=== PATIENT | male | born 1970 | race Hispanic/Latino ===

== ENCOUNTER 2019-12-05 18:35 | Emergency (ER) | payer OTHER ==
[~2019-12-05] VITALS: Ht 162.6 cm; Wt 64.0 kg
[2019-12-05] MEDS ORDERED: SODIUM CHLORIDE 0.9% 1000ML 1,000 ML IV ONE ×2 (19:00→19:45)
[2019-12-05] MEDS ORDERED: INSULIN REGULAR, HUMAN 100 UNIT/1 ML 3ML VIAL SQ ONE ×2 (19:00→21:30)
[2019-12-05 19:16] LABS: BASOPHILS # (AUTO) 0.1 (0.0-0.1); BASOPHILS % 0.3 % (0.0-1.0); EOSINOPHILS % 0.2 % (0.0-6.0); HEMATOCRIT 43.4 % (38.2-49.6); HEMOGLOBIN 14.5 g/dL (14.0-18.0); LYMPHOCYTES # (AUTO) 0.9 (1.0-3.2); LYMPHOCYTES % 6.1 % (18.0-39.1); MEAN CORPUSCULAR HEMOGLOBIN 27.9 pg (28-32); MEAN CORPUSCULAR HGB CONC 33.4 g/dL (31-35); MEAN CORPUSCULAR VOLUME 83.5 fL (81-99); MONOCYTES # (AUTO) 0.7 (0.2-0.8); NEUTROPHILS # (AUTO) 12.6 (2.1-6.9); NEUTROPHILS % 87.8 % (38.7-80.0); PLATELET COUNT 289 x10e3/uL (140-360); RED CELL DISTRIBUTION WIDTH 12.7 % (11.7-14.4)
--- NOTE | 2019-12-05 19:20 | Emergency Department Note ---
History of Present Illnes History of Present Illness Chief Complaint: Diabetic Crisis History of Present Illness This is a 49 year old male tates bs at home 600 c/o peeing more and being thirstier than usual takes glipezide er and metformin er at home. Does report he did not take his diabetes medication today. Historian: Patient Arrival Mode: Car Onset (how long ago): hour(s) (6) Location: none Quality: increased thirst, urination, elevated blood sugar Radiation: Reports non-radiation Severity: mild Onset quality: gradual Duration (how long): hour(s) (6) Timing of current episode: constant Progression: unchanged Chronicity: new Context: Denies recent illness, Denies recent surgery Relieving factors: none Exacerbating factors: none Associated symptoms: Reports denies other symptoms Treatments prior to arrival: none Past Medical/Family History Physician Review I have reviewed the patient's past medical and family history. Any updates have been documented here. Past Medical History Recent Fever: No Clinical Suspicion of Infectio: No New/Unexplained Change in Ment: No Past Medical History: Diabetes Past Surgical History: None Social History Smoking Cessation: Never Smoker Alcohol Use: None Any Illegal Drug Use: No Physically hurt or threatened: No Family History Family history of heart diseas: No Other family history htn, dm Review of Systems Review of Systems Constitutional: Reports as per HPI EENTM: Reports no symptoms Cardiovascular: Reports no symptoms Respiratory: Reports no symptoms Gastrointestinal: Reports no symptoms Genitourinary: Reports as per HPI Musculoskeletal: Reports no symptoms Integumentary: Reports no symptoms Neurological: Reports no symptoms Psychological: Reports no symptoms Endocrine: Reports no symptoms Hematological/Lymphatic: Reports no symptoms Physical Exam Related Data Allergies: Coded Allergies: No Known Allergies (Unverified , 12/05/19) Triage Vital Signs Vital Signs Date Time Temp Pulse Resp B/P (MAP) Pulse Ox O2 Delivery O2 Flow Rate FiO2 12/05/19 18:48 98.9 107 18 136/91 98 Room Air Vital signs reviewed: Yes Physical Exam CONSTITUTIONAL Constitutional: Present well-developed, Present well-nourished HENT HENT: Present normocephalic, Present atraumatic, Present mucosae dry, Present nose normal HENT L/R: Present left ext ear normal, Present right ext ear normal EYES Eyes: Reports PERRL, Reports conjunctivae normal NECK Neck: Present ROM normal PULMONARY Pulmonary: Present effort normal, Present breath sounds normal CARDIOVASCULAR Cardiovascular: Present regular rhythm, Present heart sounds normal, Present capillary refill normal, Present tachycardia (106) GASTROINTESTINAL Abdominal: Present soft, Present bowel sounds normal, Present tender (mild epigastric region ) GENITOURINARY Genitourinary: Present exam deferred SKIN Skin: Present warm, Present dry MUSCULOSKELETAL Musculoskeletal: Present ROM normal NEUROLOGICAL Neurological: Present alert, Present oriented x 3, Present no gross motor or sensory deficits PSYCHOLOGICAL Psychological: Present mood/affect normal, Present judgement normal Results Laboratory Laboratory Laboratory Tests Test 12/06/19 00:01 12/05/19 23:18 12/05/19 18:59 Carbon Dioxide Level 26 mmol/L (22-29) 26 mmol/L (22-29) Blood Urea Nitrogen 13 mg/dL (7-26) 16 mg/dL (7-26) Creatinine 0.91 mg/dL (0.72-1.25) 1.35 mg/dL (0.72-1.25) Estimat Glomerular Filtration Rate > 60 ML/MIN (60-) 56 ML/MIN (60-) BUN/Creatinine Ratio 14 (6-25) 12 (6-25) Glucose Level 219 mg/dL (74-118) 691 mg/dL (74-118) Calcium Level 9.6 mg/dL (8.4-10.2) 10.3 mg/dL (8.4-10.2) Bedside Glucose 225 mg/dL (70-120) White Blood Count 14.32 x10e3/uL (4.8-10.8) Red Blood Count 5.20 x10e6/uL (4.3-5.7) Hemoglobin 14.5 g/dL (14.0-18.0) Hematocrit 43.4 % (38.2-49.6) Mean Corpuscular Volume 83.5 fL (81-99) Mean Corpuscular Hemoglobin 27.9 pg (28-32) Mean Corpuscular Hemoglobin Concent 33.4 g/dL (31-35) Red Cell Distribution Width 12.7 % (11.7-14.4) Platelet Count 289 x10e3/uL (140-360) Neutrophils (%) (Auto) 87.8 % (38.7-80.0) Lymphocytes (%) (Auto) 6.1 % (18.0-39.1) Monocytes (%) (Auto) 5.0 % (4.4-11.3) Eosinophils (%) (Auto) 0.2 % (0.0-6.0) Basophils (%) (Auto) 0.3 % (0.0-1.0) Neutrophils # (Auto) 12.6 (2.1-6.9) Lymphocytes # (Auto) 0.9 (1.0-3.2) Monocytes # (Auto) 0.7 (0.2-0.8) Eosinophils # (Auto) 0.0 (0.0-0.4) Basophils # (Auto) 0.1 (0.0-0.1) Absolute Immature Granulocyte (auto 0.08 x10e3/uL (0-0.1) Sodium Level 136 mmol/L (136-145) Potassium Level 4.7 mmol/L (3.5-5.1) Chloride Level 96 mmol/L (98-107) Anion Gap 18.7 mmol/L (8-16) Total Bilirubin 0.4 mg/dL (0.2-1.2) Aspartate Amino Transf (AST/SGOT) 18 IU/L (5-34) Alanine Aminotransferase (ALT/SGPT) 23 IU/L (0-55) Alkaline Phosphatase 126 IU/L (40-150) Creatine Kinase 82 IU/L (30-200) Creatine Kinase MB 3.10 ng/mL (0-5.0) Troponin I < 0.001 ng/mL (0-0.300) Total Protein 7.8 g/dL (6.5-8.1) Albumin 4.2 g/dL (3.5-5.0) Globulin 3.6 g/dL (2.3-3.5) Albumin/Globulin Ratio 1.2 (0.8-2.0) Amylase Level 42 U/L (25-125) Lipase 31 U/L (8-78) Laboratory Tests Test 12/05/19 18:59 Lab results reviewed: Yes Imaging Imaging results reviewed: Yes Impressions Patient Name: ISRRAEL DELANEY MR #: [id number] : 1970 Age/Sex: 49/M Req #: [id number] Adm Physician: Ordered by: COCO CHAU MD Report #: [id number] Location: ER Room/Bed: Procedure: [id number] DX/CHEST SINGLE (PORTABLE) Exam Date: 12/05/19 Exam Time: 1929 REPORT STATUS: Signed EXAMINATION: CHEST SINGLE (PORTABLE) INDICATION: Weakness COMPARISON: None FINDINGS: TUBES and LINES: None. LUNGS: Lungs are clear. No consolidations. There is bibasilar atelectasis. PLEURA: No pleural effusion or pneumothorax. HEART AND MEDIASTINUM: The cardiomediastinal silhouette is unremarkable. BONES AND SOFT TISSUES: No acute osseous lesion. Soft tissues are unremarkable. UPPER ABDOMEN: No free air under the diaphragm. IMPRESSION: 1. No acute thoracic radiographic abnormality. 2. Bibasilar atelectasis. Signed by: Jennifer Thapa MD on 12/05/2019 8:13 PM Dictated By: JENNIFER THAPA MD 12 Transcribed By: REI on 12/05/192012 Procedures 12 Lead ECG Interpretation ECG Interpretation : ECG: ECG 1 Meter Reader Inspector: Interpreted by ED physician Date: Dec 05, 2019 Time: 19:01 Rhythm: sinus tachycardia Rate: tachycardia BPM: 109 QRS axis: right T wave inversion: V1 Other findings: early repolarization Q waves: III Clinical Impression: abnormal ECG Assessment & Plan Medical Decision Making MDM pt with elevated blood sugar, increased thirst and urination cbc, cmp, ekg, cardiac enzymes, amylase, lipase, cxr ordered to eval for dka, myocardial infarction, rhabdomyolysis, electrolyte abnormality, intrathoracic abnormality, pancreatitis 1 liter ns iv bolus ordered regular insulin 15 units sq ordered Reassessment Reassessment time: 01:38 Reassessment BLOOD SUGAR NO 219, PT FEELS BETTER, DENIES ANY SYMPTOMS AT THIS TIME Assessment & Plan Final Impression: (1) Hyperglycemia due to diabetes mellitus Depart Disposition: HOME, SELF-CARE Last Vital Signs Date Time Temp Pulse Resp B/P (MAP) Pulse Ox O2 Delivery O2 Flow Rate FiO2 12/05/19 18:48 98.9 107 18 136/91 98 Room Air Medications in the ED Sodium Chloride 1,000 ml @ 999 mls/hr Q1H1M ONCE IV ; Start 12/05/19 at 19:00; Stop 12/05/19 at 20:00 Insulin Human Regular 15 unit ONCE ONCE SQ ; Start 12/05/19 at 19:00; Stop 12/05/19 at 19:04; Status DC COCO CHAU MD Dec 05, 2019 19:20
[2019-12-05 19:35] LABS: ALANINE AMINOTRANSFERASE 23 IU/L (0-55); ALBUMIN 4.2 g/dL (3.5-5.0); ALBUMIN/GLOBULIN RATIO 1.2 (0.8-2.0); ALKALINE PHOSPHATASE 126 IU/L (40-150); ANION GAP 18.7 mmol/L (8-16); BLOOD UREA NITROGEN 16 mg/dL (7-26); BUN/CREATININE RATIO 12 (6-25); CALCIUM 10.3 mg/dL (8.4-10.2); CARBON DIOXIDE 26 mmol/L (22-29); CHLORIDE 96 mmol/L (98-107); CREATINE KINASE 82 IU/L (30-200); CREATININE, SERUM 1.35 mg/dL (0.72-1.25); EST GLOMERULAR FILTRATION RATE 56 ML/MIN (60-); POTASSIUM 4.7 mmol/L (3.5-5.1); SODIUM 136 mmol/L (136-145)
[2019-12-05 19:36] LABS: AMYLASE 42 U/L (25-125); LIPASE 31 U/L (8-78)
[2019-12-05 19:40] LABS: GLUCOSE 691 mg/dL (74-118)
--- NOTE | 2019-12-05 20:16 | Diagnostic Imaging Report ---
EXAMINATION: CHEST SINGLE (PORTABLE) INDICATION: Weakness COMPARISON: None FINDINGS: TUBES and LINES: None. LUNGS: Lungs are clear. No consolidations. There is bibasilar atelectasis. PLEURA: No pleural effusion or pneumothorax. HEART AND MEDIASTINUM: The cardiomediastinal silhouette is unremarkable. BONES AND SOFT TISSUES: No acute osseous lesion. Soft tissues are unremarkable. UPPER ABDOMEN: No free air under the diaphragm. IMPRESSION: 1. No acute thoracic radiographic abnormality. 2. Bibasilar atelectasis. Signed by: Rc Thapa MD on 12/05/2019 8:13 PM
[2019-12-05] MEDS ORDERED: SODIUM CHLORIDE 0.9% 1000ML 1,000 ML IV SCH (21:30)
[2019-12-06 01:19] LABS: BLOOD UREA NITROGEN 13 mg/dL (7-26); BUN/CREATININE RATIO 14 (6-25); CALCIUM 9.6 mg/dL (8.4-10.2); CARBON DIOXIDE 26 mmol/L (22-29); CREATININE, SERUM 0.91 mg/dL (0.72-1.25); EST GLOMERULAR FILTRATION RATE > 60 ML/MIN (60-); GLUCOSE 219 mg/dL (74-118)
[2019-12-06 01:49] LABS: CHLORIDE 106 mmol/L (98-107); SODIUM 141 mmol/L (136-145)
[2019-12-06 01:51] LABS: ANION GAP 12.4 mmol/L (8-16); POTASSIUM 3.4 mmol/L (3.5-5.1)
[2019-12-06 02:05] VITALS: BP 118/80
== END 2019-12-06 02:15 | disposition home or self-care (01) ==
LOC: ER 19:00
DX: E11.65 Type 2 diabetes mellitus with hyperglycemia (principal); R94.31 Abnormal electrocardiogram [ECG] [EKG]
CPT/HCPCS: 36415; 71045; 80048; 80053; 82150; 82550; 82553; 82948; 83690; 84484; 85025; 93005; 99284; J1817; J7030

== ENCOUNTER 2022-10-24 09:32 | Emergency (ER) | payer OTHER ==
[~2022-10-24] VITALS: Ht 162.6 cm; Wt 64.0 kg
[2022-10-24] MEDS ORDERED: SODIUM CHLORIDE FLUSH 10 ML SYR IV PRN (10:00)
[2022-10-24 10:43] LABS: BASOPHILS % 0.4 % (0.0-1.0); EOSINOPHILS # (AUTO) 0.1 (0.0-0.4); EOSINOPHILS % 1.9 % (0.0-6.0); HEMATOCRIT 41.8 % (38.2-49.6); HEMOGLOBIN 13.8 g/dL (14.0-18.0); LYMPHOCYTES # (AUTO) 1.9 (1.0-3.2); LYMPHOCYTES % 27.7 % (18.0-39.1); MEAN CORPUSCULAR HEMOGLOBIN 28.8 pg (28-32); MEAN CORPUSCULAR VOLUME 87.1 fL (81-99); MONOCYTES # (AUTO) 0.6 (0.2-0.8); NEUTROPHILS # (AUTO) 4.2 (2.1-6.9); NEUTROPHILS % 61.7 % (38.7-80.0); PLATELET COUNT 309 x10e3/uL (140-360); RED CELL DISTRIBUTION WIDTH 12.5 % (11.7-14.4)
[2022-10-24 11:06] LABS: ALBUMIN/GLOBULIN RATIO 1.3 (0.8-2.0); ANION GAP 12.5 mmol/L (8-16); CALCIUM 9.3 mg/dL (8.4-10.2); CREATININE, SERUM 0.82 mg/dL (0.72-1.25); INR 0.82; PARTIAL THROMBOPLASTIN TIME 26.4 seconds (23.8-35.5); POTASSIUM 4.5 mmol/L (3.5-5.1); PROTHROMBIN TIME 11.8 seconds (11.9-14.5)
[2022-10-24] MEDS ORDERED: ASPIRIN 81 MG CHEW TAB PO ONE (12:00)
[2022-10-24 13:50] VITALS: BP 134/92; PULSE 88; RESP 18; TEMP 98.8; O2SAT 100
== END 2022-10-24 14:27 | disposition short-term general hospital (02) ==
LOC: ER 09:35
DX: H53.8 Other visual disturbances (principal); R29.818 Other symptoms and signs involving the nervous system; E11.65 Type 2 diabetes mellitus with hyperglycemia
CPT/HCPCS: 36415; 70450; 71045; 80053; 83880; 84484; 85025; 85610; 85730; 93005; 99284